=== PATIENT | male | born 1995 | race Caucasian/White ===

== ENCOUNTER 2018-04-28 10:03 | Emergency (ER) | payer MEDICAID, BC ==
[2018-04-28] MEDS: IBUPROFEN 800 MG TAB PO (11:38)
== END 2018-04-28 12:48 | disposition home or self-care (01) ==
LOC: FTE 10:03
DX: S69.91XA Unspecified injury of right wrist, hand and finger(s), initial encounter (principal); J45.909 Unspecified asthma, uncomplicated; W22.8XXA Striking against or struck by other objects, initial encounter; Y92.9 Unspecified place or not applicable
CPT/HCPCS: 73130; 73130-RT; 99283-25

== ENCOUNTER 2018-10-23 15:29 | Emergency (ER) | payer SELFPAY, MEDICAID ==
[2018-10-23] MEDS: DIPHENHYDRAMINE 50 MG INJ IM (18:29)
[2018-10-23] MEDS: METHYLPREDNISOLONE 125 MG INJ IM (18:30)
== END 2018-10-23 18:58 | disposition home or self-care (01) ==
LOC: FTE 15:29
DX: R21 Rash and other nonspecific skin eruption (principal); J45.909 Unspecified asthma, uncomplicated
CPT/HCPCS: 96372; 99284-25

== ENCOUNTER 2018-12-05 12:18 | Emergency (ER) | payer SELFPAY ==
[2018-12-05] MEDS: IBUPROFEN 800 MG TAB PO (14:44)
== END 2018-12-05 15:49 | disposition home or self-care (01) ==
LOC: FTE 12:18
DX: S99.912A Unspecified injury of left ankle, initial encounter (principal); J45.909 Unspecified asthma, uncomplicated; X58.XXXA Exposure to other specified factors, initial encounter; Y92.9 Unspecified place or not applicable
CPT/HCPCS: 29515; 73610; 99283-25

== ENCOUNTER 2019-02-14 09:09 | Emergency (ER) | payer SELFPAY | END 2019-02-14 10:15 | disposition home or self-care (01) | LOC: FTE 09:09 | DX: L30.9 Dermatitis, unspecified (principal); J45.909 Unspecified asthma, uncomplicated | CPT/HCPCS: 99283 ==